=== PATIENT | male | born 1990 | race Caucasian/White ===

== ENCOUNTER 2016-11-13 08:00 | Outpatient (CLI) | payer MEDICAID | END 2016-11-13 08:01 | disposition home or self-care (01) | DX: E11.9 Type 2 diabetes mellitus without complications (principal); E78.5 Hyperlipidemia, unspecified ==

== ENCOUNTER 2017-02-15 13:48 | Outpatient (CLI) | payer MEDICAID | END 2017-02-15 23:59 | DX: E78.5 Hyperlipidemia, unspecified (principal); K76.0 Fatty (change of) liver, not elsewhere classified; E11.9 Type 2 diabetes mellitus without complications ==

== ENCOUNTER 2017-05-18 10:48 | Outpatient (CLI) | payer MEDICAID ==
[2017-05-18 14:05] LABS: BASOPHILS % (AUTO) 0.4 %; EOSINOPHILS # (AUTO) 0.1 10^3/uL (0.0-0.7); EOSINOPHILS % (AUTO) 1.6 %; HCT - HEMATOCRIT 44.7 % (42.0-52.0); HGB - HEMOGLOBIN 14.8 g/dL (14.0-18.0); LYMPHOCYTES # (AUTO) 2.6 10^3/uL (1.5-3.5); LYMPHOCYTES % (AUTO) 34.9 %; MEAN CORPUSCULAR HEMOGLOBIN 26.6 pg (27.0-31.0); MEAN CORPUSCULAR HGB CONC 33.1 g/dL (32.0-36.0); MEAN CORPUSCULAR VOLUME 80.2 fL (80.0-94.0); MEAN PLATELET VOLUME 10.4 fL (7.4-11.4); MONOCYTES # (AUTO) 0.4 10^3/uL (0.0-1.0); MONOCYTES % (AUTO) 6.1 %; NEUTROPHILS # (AUTO) 4.2 10^3/uL (1.5-6.6); RED BLOOD COUNT 5.57 10^6/uL (4.70-6.10); RED CELL DISTRIBUTION WIDTH 13.9 % (12.0-15.0); UNCORRECTED WHITE BLOOD COUNT 7.4 x10^3/uL; WHITE BLOOD COUNT 7.4 x10^3/uL (4.8-10.8)
[2017-05-18 14:31] LABS: ALBUMIN/GLOBULIN RATIO 1.2 (1.0-2.2); BILIRUBIN,TOTAL 0.8 mg/dL (0.2-1.0); BUN - BLOOD UREA NITROGEN 15 mg/dL (6-20); CALCIUM 8.9 mg/dL (8.5-10.3); CARBON DIOXIDE - CO2 24 mmol/L (21-32); CHLORIDE 104 mmol/L (101-111); CHOL/HDL RATIO 3.9 (<5.0); CHOLESTEROL 140 mg/dL; CREATININE 0.8 mg/dL (0.6-1.2); GFR - MDRD 116 (>89); GLUCOSE 195 mg/dL (70-100); HDL CHOLESTEROL 36 mg/dL; LDL/HDL RATIO 1.6 (<3.6); POTASSIUM 3.6 mmol/L (3.5-5.0); SODIUM 137 mmol/L (135-145); TOTAL PROTEIN 6.8 g/dL (6.7-8.2); TRIGLYCERIDES 226 mg/dL; VLDL CHOLESTEROL 45 mg/dL
[2017-05-18 14:54] LABS: HEMOGLOBIN A1C 1.46 g/dL
== END 2017-05-18 10:49 | disposition home or self-care (01) ==
LOC: LAB.N 10:48
PROVIDERS: ATTEND Nurse Practitioner Gerontology
DX: E78.5 Hyperlipidemia, unspecified (principal); Z79.4 Long term (current) use of insulin; K76.0 Fatty (change of) liver, not elsewhere classified; E11.9 Type 2 diabetes mellitus without complications
CPT/HCPCS: 36415; 80053; 80061; 83036; 85025

== ENCOUNTER 2017-12-14 08:00 | Outpatient (CLI) | payer MEDICAID ==
[2017-12-14 14:08] LABS: HB2 TOTAL 16.3 g/dL; HEMOGLOBIN A1C 1.39 g/dL
== END 2017-12-14 08:01 | disposition home or self-care (01) ==
LOC: LAB.WCP 08:00
PROVIDERS: ATTEND Physician Assistant Medical
DX: E11.9 Type 2 diabetes mellitus without complications (principal); Z79.4 Long term (current) use of insulin
CPT/HCPCS: 36415; 83036

== ENCOUNTER 2018-03-18 10:44 | Outpatient (CLI) | payer MEDICAID ==
[2018-03-18 19:18] LABS: CREATININE 0.6 mg/dL (0.6-1.2)
[2018-03-18 19:24] LABS: HB2 TOTAL 16.9 g/dL; HEMOGLOBIN A1C 1.1 g/dL; HEMOGLOBIN A1C % 8.1 % (4.6-6.2)
== END 2018-03-18 10:45 | disposition home or self-care (01) ==
LOC: LAB.N 10:44
PROVIDERS: ATTEND Family Medicine
DX: E11.9 Type 2 diabetes mellitus without complications (principal)
CPT/HCPCS: 36415; 80048; 83036

== ENCOUNTER 2018-06-26 07:40 | Outpatient (CLI) | payer BC, MEDICAID ==
[2018-06-26 12:38] LABS: HB2 TOTAL 15.7 g/dL; HEMOGLOBIN A1C 1.29 g/dL; HEMOGLOBIN A1C % 9.7 % (4.6-6.2)
== END 2018-06-26 07:41 | disposition home or self-care (01) ==
LOC: LAB.N 07:40
PROVIDERS: ATTEND Nurse Practitioner Gerontology
DX: E11.9 Type 2 diabetes mellitus without complications (principal)
CPT/HCPCS: 36415; 83036

== ENCOUNTER 2018-09-17 08:00 | Outpatient (CLI) | payer BC, MEDICAID ==
[2018-09-17 14:15] LABS: HB2 TOTAL 16.6 g/dL; HEMOGLOBIN A1C 1.07 g/dL
== END 2018-09-17 08:01 | disposition home or self-care (01) ==
LOC: LAB.N 08:00
PROVIDERS: ATTEND Nurse Practitioner Gerontology
DX: E11.9 Type 2 diabetes mellitus without complications (principal)
CPT/HCPCS: 36415; 83036

== ENCOUNTER 2018-10-01 08:00 | Outpatient (CLI) | payer BC, MEDICAID ==
[2018-10-01 13:07] LABS: CREATININE,URINE 257.6 mg/dL; MICROALBUM/CREATININE RATIO,UR 1.6 ug/mg (<30.0); MICROALBUMIN,URINE 0.4 mg/dL (0-300.0)
== END 2018-10-01 23:59 | disposition home or self-care (01) ==
LOC: LAB.WCP 08:00
PROVIDERS: ATTEND Internal Medicine Endocrinology, Diabetes & Metabolism
DX: E11.9 Type 2 diabetes mellitus without complications (principal); Z79.4 Long term (current) use of insulin
CPT/HCPCS: 36415; 82043; 82570; 84443

== ENCOUNTER 2018-12-17 08:00 | Outpatient (CLI) | payer BC, MEDICAID ==
[2018-12-17 18:59] LABS: CREATININE 0.6 mg/dL (0.6-1.2)
[2018-12-17 19:37] LABS: HB2 TOTAL 16.6 g/dL; HEMOGLOBIN A1C 1.35 g/dL; HEMOGLOBIN A1C % 9.6 % (4.6-6.2)
== END 2018-12-17 23:59 | disposition home or self-care (01) ==
LOC: LAB.N 08:00
PROVIDERS: ATTEND Internal Medicine Endocrinology, Diabetes & Metabolism
DX: E11.9 Type 2 diabetes mellitus without complications (principal); Z79.4 Long term (current) use of insulin
CPT/HCPCS: 36415; 82565; 83036